=== PATIENT | female | born 1980 | race Caucasian/White ===

== ENCOUNTER 2020-05-07 14:12 | Emergency (ER) | payer BC, SELFPAY ==
--- NOTE | ~2020-05-07 | XR_ITS ---
EXAMINATION: XR knee LT 3V, XR tibia fibula LT 2V DATE: 05/07/2020 14:45 INDICATION: Lateral left knee and lower leg pain post fall 2 weeks prior TECHNIQUE: 1. Anteroposterior, sunrise and crosstable lateral views of the left knee were obtained 2. AP and lateral views of the left lower leg were obtained. COMPARISON: None. FINDINGS: Alignment is normal at the left knee, ankle foot. No fracture. Joint spaces are normal on nonweightb earing imaging. No left knee or ankle joint effusion/layering lipohemarthrosis. Soft tissues are unre markable. IMPRESSION: 1. Negative left knee and lower leg radiographs. Reviewed, dictated and finalized at location B. L SPAR OPERATOR IMPRESSION: 1. Negative left knee and lower leg radiographs.
--- NOTE | 2020-05-07 14:34 | ED.LOWEXIN ---
HPI - Extremity Injury (Lower) General Chief Complaint: Extremity Injury, Lower Stated Complaint: lt leg injury Time Seen by Provider: 05/07/20 14:34 Source: patient and RN notes reviewed Mode of arrival: ambulatory Limitations: no limitations History of Present Illness HPI Narrative: 40-year-old female presents with concern for left knee pain. Reports 2 weeks ago she had a a slip and fall injury causing lateral knee pain, lower leg pain. Reports she has been using ice, ibuprofen. Reports pain has improved over the last week and a half. Reports she worried because she feels like her knee is giving out more often than usual. Denies any other pain, swelling, bruising, decreased sensation, decreased induration. MD complaint: knee injury Related Data Home Medications Medication Instructions Recorded Confirmed No Home Medications 05/07/20 05/07/20 Allergies Allergy/AdvReac Type Severity Reaction Status Date / Time No Known Allergies Allergy Unverified 12/11/17 13:15 Review of Systems Review of Systems: Narrative: CONSTITUTIONAL: Denies malaise, chills, sweats, or fever. CARDIOVASCULAR: Denies chest pain, palpitations, or edema. RESPIRATORY: Denies cough or dyspnea. SKIN: Reports anterior knee scab, denies open skin MUSCULOSKELETAL: Reports left knee and leg pain NEUROLOGIC: Denies numbness, weakness All systems reviewed & are unremarkable except as noted in HPI and below PMFSH Comments At time of signature, agree with nursing past medical, surgical, social and family history. There is no relevant family history pertinent to the presenting complaint Exam Narrative: Exam Narrative: GENERAL: Well-appearing, well-nourished, and in no acute distress. HEAD: Normocephalic, atraumatic. EYES: PERRLA, conjunctivae clear NECK: Supple. CHEST: Speaks in full sentences. No respiratory distress. HEART: Regular rate and rhythm. Normal and equal peripheral pulses. EXTREMITIES: Left knee has normal strength and sensation, normal range of motion. No edema or ecchymosis. 5/5 strength with knee flexion and extension. Normal sensation with sensitivity to light touch and pain. No point tenderness. No open wounds, no skin tenting, no devitalized tissue or atrophy, no trophic changes, no obvious deformity, alignment normal, nearby joints and structures intact. Distal pulses palpable and equal bilaterally, skin warm, dry, pink. Capillary refill less than 3 seconds. Lever test negative, anterior drawer test negative SKIN: Warm, dry, no rash. NEURO: Alert and oriented x3. PSYCH: Normal mood and affect Course Course Emergency Course: Patient is aware of diagnosis, understands and agrees to treatment plan. Anticipatory guidance given. Patient agrees to follow-up as directed and is aware of reasons to seek care at the emergency department. Portions of this record may have been created with voice recognition software Vital Signs Vital signs: Vital Signs Temperature 97.5 F L 05/07/20 14:45 Pulse Rate 90 05/07/20 14:45 Respiratory Rate 16 05/07/20 14:45 Blood Pressure 130/89 05/07/20 14:45 Pulse Oximetry 100 05/07/20 14:45 Temperature 97.5 F L 05/07/20 14:45 Pulse Rate 90 05/07/20 14:45 Respiratory Rate 16 05/07/20 14:45 Blood Pressure 130/89 05/07/20 14:45 Pulse Oximetry 100 05/07/20 14:45 Reviewed. MDM - Extremity Injury (Lower) MDM Narrative Medical decision making narrative: Patients injury and pain is consistent with musculoskeletal etiology. No signs of neurological or vascular compromise on exam. Compartments and tissues are soft without signs of compartment syndrome. Pain is felt appropriate for further evaluation on an outpatient basis. Imaging Data Radiologist's impression: EXAMINATION: XR knee LT 3V, XR tibia fibula LT 2V DATE: 05/07/2020 14:45 INDICATION: Lateral left knee and lower leg pain post fall 2 weeks prior TECHNIQUE: 1. Anteroposterior, sunrise and crosstable lateral views o
[2020-05-07 14:45] VITALS: BP 130/89; PULSE 90; RESP 16; TEMP 36.4; O2SAT 100
== END 2020-05-07 15:03 | disposition home or self-care (01) ==
PROVIDERS: Emergency Provider Nurse Practitioner; PCP Internal Medicine
DX: M25.562 Pain in left knee (principal)
CPT/HCPCS: 73562; 73590; 99214; G0463

== ENCOUNTER 2021-03-12 10:26 | Emergency (ER) | payer BC, SELFPAY ==
[2021-03-12 10:35] VITALS: BP 132/80; PULSE 74; RESP 18; TEMP 36.2; O2SAT 100
--- NOTE | 2021-03-12 11:04 | ED_ITS ---
HPI - URI/Sore Throat General Chief Complaint: Upper Respiratory Infection Stated Complaint: Cough, Congestion Source: patient and RN notes reviewed Limitations: no limitations History of Present Illness HPI Narrative: The vaccinated patient ,smoker/nondrinker, presents with 1/2-week history of minimally productive cough, nasal congestion and possible nighttime wheezing. No fever, sore throat, earache; no loss of taste/smell, CP, vomiti ng/diarrhea, wheezing, S OB-she reports having Covid illness in the past. Related Data Allergies Allergy/AdvReac Type Severity Reaction Status Date / Time No Known Allergies Allergy Unverified 03/12/21 10:29 Review of Systems Review of Systems: General/Constitutional: No weight loss,fever Eyes: N0: Redness,discharge Ears/Nose/Throat: No: Epistaxis,ear discharge Respiratory: Denies: Hemoptysis Gastrointestinal: No Vomiting, Bleeding-rectal Skin: No Lumps, eruption Neurologic: No Focal Weakness,Sz Hematologic: Denies: Petechiae/Purpura Psychiatric: No: Suicida ideationl All Other Systems: Reviewed and Negative PMFSH Comments At time of signature, agree with nursing past medical, surgical, social and family history. There is no relevant family history pertinent to the presenting complaint Exam Narrative: General Appearance: Well appearing, Well nourished EYE: PERRLA, Conjunctiva clear Ears: Auditory canal normal, TM normal Nose: Rhinorrhea, Mucousal erythema Mouth/Throat: MM moist, Uvula midline, Pharyngeal erythema Neck: Supple, No adenopathy Respiratory: No respiratory distress, Breath sounds equal, Clear to auscultation Cardiovascular: RRR, No JVD Musculoskeletal: Non tender, Normal strength Skin: Warm, Dry Neurological: A&O x3, CN II-XII intact Psychiatric: Normal mood, Normal affect Course Vital Signs Vital signs: Vital Signs Temperature 97.1 F L 03/12/21 10:35 Pulse Rate 74 03/12/21 10:35 Respiratory Rate 18 03/12/21 10:35 Blood Pressure 132/80 03/12/21 10:35 Pulse Oximetry 100 03/12/21 10:35 Temperature 97.1 F L 03/12/21 10:35 Pulse Rate 74 03/12/21 10:35 Respiratory Rate 18 03/12/21 10:35 Blood Pressure 132/80 03/12/21 10:35 Pulse Oximetry 100 03/12/21 10:35 Discharge Plan Discharge Clinical Impression: Upper respiratory infection Patient Disposition: Home, Self-Care Condition: Stable Instructions: Antibiotic Form, Acute Bronchitis (ED) Prescriptions: New azithromycin 250 mg tablet See Rx Instructions .ROUTE .COMPLEX Qty: 6 RF: 0 benzonatate 100 mg capsule 100 mg PO TID PRN (Reason: cough) Qty: 20 RF: 2 codeine-guaifenesin 10-100 mg/5 mL liquid 7.5 ml PO Q6H PRN (Reason: cough) Qty: 118 RF: 0 albuterol sulfate [Ventolin HFA] 90 mcg/actuation HFA aerosol inhaler 2 puff INHALATION QID PRN (Reason: shortness of breath or wheezing) Qty: 8.5 RF: 1 Follow-up/Referrals: Shorty,MD Basilio [Primary Care Provider] -
[2021-03-14 19:11] LABS: SARS-CoV-2 RNA PCR Positive
== END 2021-03-12 11:11 | disposition home or self-care (01) ==
PROVIDERS: Emergency Provider Emergency Medicine; PCP Internal Medicine
DX: U07.1 COVID-19 (principal)
CPT/HCPCS: 99213; C9803; G0463; U0003; U0005

== ENCOUNTER 2022-10-13 02:20 | Day surgery (SDC) | payer BC, SELFPAY ==
[2022-10-02 16:10] VITALS: BMI 32.7
--- NOTE | 2022-10-13 07:08 | PM.HPGS ---
History of Present Illness History of Present Illness Consent: Risks, benefits, and alternatives have been discussed and questions answered. Patient agrees to proceed with procedure. Chief complaint: diarrhea Narrative: Love Ugarte is a 42 year old female Who was being investigated for chronic diarrhea. Recent stool studies did show that she was positive for blastocyst this. This of course is a commensurate organism and usually not associated with Disease or symptoms. She states that she has had diarrhea with at least 4 bowel movements per day which are unformed for the past 6 or 8 months. Part of that she thinks may be due to stress Owing to the fact her brother was killed. she also has had a great deal of indigestion. Last year she was tried on ulcer medicine for few weeks. She is very uncomfortable in the epigastric area. She has had an excessive amount of bloating and distension and also burping. She does admit to using straws most the time when she is drinking a beverage Review of Systems Review of Systems: All systems reviewed & are unremarkable except as noted in HPI and below PMFSH Past Medical History Medical History Chronic rhinitis Surgical History Surgical History H/O breast biopsy left breast bx 04/2022 H/O excision of ganglion cyst H/O gynecological procedure mirena iud removal / insertion - 02/15/2016 Mirena iud insertion 2010 H/O hemorrhoidectomy Shoulder Family History Family History Other Hx of hemorrhoidectomy Social History Social History Smoking packs per day: 0.5 Smoking cigarettes per day: 10.0 Years smoked: 15 Smoking pack-years: 7.50 Smoking status: Current every day smoker Tobacco type: cigarettes Alcohol intake: current Drinks per week: 8 Alcohol use details: BEERS Substance use: never Substance use type: does not use Lack of Transportation: No Lack of Food: Never True Current Housing: I Have Housing Concerned About Future Housing: No Difficulty Paying Gas/Electric Bills: No Difficulty Paying for Meds: No Currently Unemployed: No Education: Bachelor's Degree Difficulty w/ Childcare or Family Care: No Living arrangements: with family Occupation/Education: occupation Additional occupation/education comments: [employer] Gender identity (if verbalized by the patient): Female Sexual Orientation (if Verbalized by the Patient): Straight or Heterosexual Spiritual care concerns: No Meds Home Medications and Allergies Home Medications Medication Instructions Recorded Confirmed Type No Home Medications 10/02/22 10/02/22 History Allergies Allergy/AdvReac Type Severity Reaction Status Date / Time No Known Allergies Allergy Verified 10/13/22 09:41 Exam Const: General: alert Orientation/consciousness: patient oriented x3 Resp: Auscultation: clear to auscultation bilaterally Cardio: Rhythm: regular rhythm GI: GI Palp: Yes Soft to palpation and No Tenderness to palpation present (GI) Neuro: General: patient oriented x3 Assessment and Plan Assessment and plan (1) Chronic diarrhea: Code(s): K52.9 - Noninfective gastroenteritis and colitis, unspecified Status: Acute Assessment and Plan: Colonoscopy with possible biopsy or polypectomy or cautery or injection of substances.
[2022-10-13 09:43] VITALS: BP 112/84; PULSE 106; RESP 18; TEMP 36.1; O2SAT 98
[2022-10-13] MEDS: LACTATED RINGERS 1,000 ML 150 ML IV CONT (09:53)
--- NOTE | 2022-10-13 10:38 | P.PNAN_ITS ---
Anes - Initial Pre Proc Eval Procedure: Operation Date: 10/13/22 11:00 Proposed Procedures p Colonoscopy - Saleem Sierra MD Date/Time: 10/13/22 10:38 Surgeon: Saleem Sierra MD Pre Op Diagnosis: diarrhea Patient Data Age: 42 Gender: F Height: 1.55 m Weight: 76 kg Last Vital Signs Temp 97 F L 10/13/22 09:43 Pulse 106 H 10/13/22 09:43 Resp 18 10/13/22 09:43 BP 112/84 10/13/22 09:43 Pulse Ox 98 10/13/22 09:43 O2 Del Method Room Air 10/13/22 09:43 Allergies Allergy/AdvReac Type Severity Reaction Status Date / Time No Known Allergies Allergy Verified 10/13/22 09:41 Home Medications Medication Instructions Recorded Confirmed Type No Home Medications 10/02/22 10/02/22 History Patient hx anesthesia problems: none Family hx anesthesia problems: none Results Review: All pre-operative results and documents have been reviewed as part of the pre- operative evaluation. [facility] Past Medical History Medical History Chronic rhinitis Surgical History Surgical History H/O breast biopsy left breast bx 04/2022 H/O excision of ganglion cyst H/O gynecological procedure mirena iud removal / insertion - 02/15/2016 Mirena iud insertion 2010 H/O hemorrhoidectomy Shoulder Family History Family History Other Hx of hemorrhoidectomy Social History Social History Smoking packs per day: 0.5 Smoking cigarettes per day: 10.0 Years smoked: 15 Smoking pack-years: 7.50 Smoking status: Current every day smoker Tobacco type: cigarettes Alcohol intake: current Drinks per week: 8 Alcohol use details: BEERS Substance use: never Substance use type: does not use Lack of Transportation: No Lack of Food: Never True Current Housing: I Have Housing Concerned About Future Housing: No Difficulty Paying Gas/Electric Bills: No Difficulty Paying for Meds: No Currently Unemployed: No Education: Bachelor's Degree Difficulty w/ Childcare or Family Care: No Living arrangements: with family Occupation/Education: occupation Additional occupation/education comments: [employer] Gender identity (if verbalized by the patient): Female Sexual Orientation (if Verbalized by the Patient): Straight or Heterosexual Spiritual care concerns: No Anes - Eval Final PreProcedure Day of Procedure 10/13/22 10:38 Patient weight: normal Heart: regular rate and rhythm Lungs: clear to auscultation Airway: Mallampati scale class II Neurological: alert and oriented Last oral intake: >/= 8 hours ASA classification: II Emergent: no Anesthetic plan: proceed Anesthesia type and monitoring: general GIVS and standard monitoring Results Review: All pre-operative results and documents have been reviewed as part of the pre- operative evaluation. Informed Consent: The patient's anesthetic plan and its attendant risks and benefits were discussed with the patient/family/POA. Questions were solicited and answers provided to the satisfaction of the patient/fami
[2022-10-13 11:12] VITALS: BP 112/75; PULSE 87; RESP 19; O2SAT 99
[2022-10-13 11:22] VITALS: BP 114/83; PULSE 81; RESP 21; O2SAT 99
[2022-10-13 11:32] VITALS: BP 113/77; PULSE 72; RESP 21; O2SAT 98
== END 2022-10-13 11:39 | disposition home or self-care (01) ==
PROVIDERS: PCP Internal Medicine; Visit Provider Internal Medicine Gastroenterology
PROC: 0DJD8ZZ Inspection of Lower Intestinal Tract, Via Natural or Artificial Opening Endoscopic (ICD-10-PCS; CPT 45378; principal; 2022-10-13 11:00)
DX: Z12.11 Encounter for screening for malignant neoplasm of colon (principal); D12.4 Benign neoplasm of descending colon; D12.5 Benign neoplasm of sigmoid colon; R19.7 Diarrhea, unspecified; F17.210 Nicotine dependence, cigarettes, uncomplicated
CPT/HCPCS: 45385; 45381; 45380; 88305; J2001; J2704; J7120